=== PATIENT | female | born 1950 | race Caucasian/White ===

== ENCOUNTER 2022-09-27 19:34 | Emergency (ER) | payer MEDICARE ==
[~2022-09-27] VITALS: Ht 172.7 cm; Wt 91.0 kg
[2022-09-27 19:39] VITALS: BP 122/66
[2022-09-27] MEDS ORDERED: AMLODIPINE BESY10 MG PO (19:52)
[2022-09-27] MEDS ORDERED: OMEPRAZOLE DR40 MG (19:52)
[2022-09-27] MEDS ORDERED: LINZESS145 MCG (19:53)
[2022-09-27 20:00] VITALS: BP 120/65
[2022-09-27 20:39] VITALS: BP 120/65
== END 2022-09-27 20:57 | disposition home or self-care (01) ==
LOC: ED 19:34
DX: S92.425A Nondisplaced fracture of distal phalanx of left great toe, initial encounter for closed fracture (principal); S90.412A Abrasion, left great toe, initial encounter; I10 Essential (primary) hypertension; W20.8XXA Other cause of strike by thrown, projected or falling object, initial encounter

== ENCOUNTER 2023-09-14 21:17 | Emergency (ER) | payer MEDICARE ==
[~2023-09-14] VITALS: Ht 172.7 cm; Wt 70.0 kg
[~2023-09-14 21:17] MED LIST: AMLODIPINE BESY10 MG PO; LINZESS145 MCG; OMEPRAZOLE DR40 MG
[2023-09-14 21:32] VITALS: BP 157/82
[2023-09-14] MEDS ORDERED: Diph, Acellular Pertussis, Tet 0.5 ML/VIAL (Tdap) SDV IM ONE (21:40)
[2023-09-14 21:46] VITALS: BP 134/71
[2023-09-15] MEDS ORDERED: IBUPROFEN600 MG PO (00:13)
[2023-09-15 00:34] VITALS: BP 134/71
== END 2023-09-15 00:34 | disposition home or self-care (01) ==
LOC: ED 21:17
DX: S92.421A Displaced fracture of distal phalanx of right great toe, initial encounter for closed fracture (principal); S80.01XA Contusion of right knee, initial encounter; I10 Essential (primary) hypertension; I87.2 Venous insufficiency (chronic) (peripheral); W01.0XXA Fall on same level from slipping, tripping and stumbling without subsequent striking against object, initial encounter; Y92.009 Unspecified place in unspecified non-institutional (private) residence as the place of occurrence of the external cause; Z98.84 Bariatric surgery status; Z96.651 Presence of right artificial knee joint